=== PATIENT | female | born 1955 | race Caucasian/White ===

== ENCOUNTER → 2016-10-16 | Outpatient (CLI) | payer BC ==
[2016-10-16 09:05] LABS: HEMOGLOBIN 13.9 g/dL (12.0-16.0); MEAN CORPUSCULAR HEMOGLOBIN 30.8 PG (27-31); MEAN CORPUSCULAR HGB CONC 33.1 g/dL (33-37); MEAN PLATELET VOLUME 10.7 FL (7.4-12.2); RDW COEFFICIENT OF VARIATION 13.3 % (11.5-14.5); RED BLOOD COUNT 4.52 10^6/uL (4.20-5.40); WHITE BLOOD COUNT 6.67 10^3/uL (4.8-10.8)
[2016-10-16 09:15] LABS: BILIRUBIN,TOTAL 0.7 mg/dL (0.3-1.2); CALCIUM 9.5 mg/dL (8.7-10.7); CREATININE 1.1 mg/dL (0.50-1.20); POTASSIUM 4.2 meq/L (3.8-5.2); TOTAL PROTEIN 7.9 g/dL (6.1-8.0)
--- NOTE | 2016-10-16 09:18 | EKG ---
[address] [place] [address] Measurements Intervals [place] Rate: 60 P: 61 SC: 117 QRS: -48 QRSD: 76 T: -27 QT: 408 QTc: 409 Interpretive Statements SINUS RHYTHM WITH SHORT SC INTERVAL LEFT ANTERIOR FASCICULAR BLOCK [QRS AXIS <= -45, QR IN I, RS IN II] MINIMAL ST DEPRESSION [0.025+ mV ST DEPRESSION] No previous ECG available for comparison Electronically Signed On 10-16-16 10:39:51 MST by Dannie Lerma MD [email or web address]
[2016-10-16 09:46] LABS: FREE T4 (FREE THYROXINE) 1.38 ng/dL (0.93-1.71)
== END ==
LOC: LAB 08:47
PROVIDERS: ATTEND Nurse Practitioner Family
DX: R00.2 Palpitations (principal); R42 Dizziness and giddiness; E03.9 Hypothyroidism, unspecified; I44.4 Left anterior fascicular block
CPT/HCPCS: 36415; 80053; 84439; 84443; 85027; 93005; 93010

== ENCOUNTER → 2016-10-19 | Outpatient (CLI) | payer BC ==
--- NOTE | 2016-10-21 15:52 | HOLTER ---
Interpretive Statements This is a 48 hour Holter study done for "palpitations, dizziness." There is a diary noting 57 events of which 7 list specific symptoms of "palpitations" (X3) with various activities; 2 list "vague throat sensation" while sitting; and 2 list "dizzy" after "bending over." With the symptomatic events the rhythm is all normal sinus with singlet APCs three times and singlet VPCs twice with twice having no ectopics and all episodes with rates of 68 to 102 BPM. There is borderline short IN at 0.[address] flattening and depression that increases with increased rates up to 1 mm. Out of 183,176 total beats there are 44 possible ventricular ectopics and 448 atrial ectopics and although the computerized reading reports some atrial fibrillation on close inspection this is actually sinus rhythm with sinus arrhythmia. There are no significant tachycardias or bradycardias. IMPRESSION: Abnormal Holter study with some correlation of symptoms with singlet APCs and singlet VPCs but with some suggestion of possible ischemia with ST-T changes on modified chest leads. Consider stress testing. Electronically Signed On 10-22-16 13:57:49 MST by Dannie Lerma MD [id number]
== END ==
LOC: RT 10:55
PROVIDERS: ATTEND Obstetrics & Gynecology Gynecology
DX: R00.2 Palpitations (principal); R42 Dizziness and giddiness
CPT/HCPCS: 93225; 93226; 93227

== ENCOUNTER → 2016-11-11 | Outpatient (CLI) | payer BC ==
--- NOTE | 2016-11-11 09:20 | STRESSTEST ---
[facility] Interpretive Statements 61 YO female without risk factors for CAD has had symptoms of presyncope, lightheaded and palpitations. Had Holter Monitor done and APCs were noted. Here for treadmill stress test. Resting EKG NSR. Exercised with , Dimitrios Protocol to 7:22 in stage three, met maximal heart rate and had normal blood pressure response to exercise. No symptoms of presyncope or chest pain. Plan: review EKG tracings. Full note to follow in [employer]. [email or web address]
--- NOTE | 2016-11-11 15:56 | PROCEDURE1 ---
Procedure - - Date and Time of Service: 11/11/2016, 1540 Procedure Note: Procedure Performed: Exercise Stress Test Subjective: 61-year-old female Palpitations and presyncope symptoms, abnormal Holter monitor with premature atrial contractions] Dimitrios protocol exercise stress test. Baseline Information: HR 82, BP 118/76, EKG findings at rest is normal sinus rhythm with some flattening of T waves in 2, 3, and aVF. Peak Exercise Data: maximum HR is 166 maximum BP 154/78 METs time in Stage 1 minute 22 seconds into stage III reason for stopping, test complete The patient had some T-wave flattening in [address] depression to about 0.8-0.9 mm. Some of them were upsloping but some of them were flattened. She did have 1 PVC. No arrhythmias noted. No symptoms of chest pain, shortness breath, or presyncopal symptoms. HR at first minute of recovery, 128 Assessment: By definition, this is a negative maximal stress test with normal blood pressure response, however flat ST segment depression, although not 1 mm, makes me suspicious of potential inferior coronary artery disease. Normal blood pressure response to exercise No symptoms No arrhythmias functional aerobic capacity in METs, 8.6 Exercise Prescription and Plan: 30 minutes of aerobic exercise would be recommended 5-7 times per week Given the flat ST segment depression, despite not reaching the maximum 1 mm depression, I recommended a nuclear treadmill stress test. Primary interventions would include aspirin 81 mg by mouth daily lifestyle modification as described above in terms of exercise.
== END ==
LOC: RT 07:55
PROVIDERS: ATTEND Obstetrics & Gynecology Gynecology
DX: R94.39 Abnormal result of other cardiovascular function study (principal)
CPT/HCPCS: 93017